=== PATIENT | male | born 1965 | race Caucasian/White ===

== ENCOUNTER 2021-09-15 21:14 | Emergency (ER) | payer OTHER ==
[~2021-09-15] VITALS: Ht 177.8 cm; Wt 77.1 kg
[2021-09-15] MEDS ORDERED: SUBOXONE 8 MG-1 EACH SL (21:23)
== END 2021-09-15 23:25 | disposition home or self-care (01) ==
LOC: ER 21:14
DX: S06.0X9A Concussion with loss of consciousness of unspecified duration, initial encounter (principal); F17.200 Nicotine dependence, unspecified, uncomplicated; Y04.2XXA Assault by strike against or bumped into by another person, initial encounter
CPT/HCPCS: 70450; 72125; A9270